=== PATIENT | male | born 1960 | race Caucasian/White ===

== ENCOUNTER 2016-03-15 09:00 | Observation (INO) | payer OTHER ==
[~2016-03-15] VITALS: Ht 185.4 cm; Wt 105.8 kg
[2016-03-15] MEDS ORDERED: BYSTOLIC5 MG PO (09:27)
[2016-03-15 10:01] LABS: HEMATOCRIT 43.4 % (38.0-50.0); MCH 30.9 PG (29.0-34.0); MCHC 35.7 G/DL (30.0-36.0); MCV 86.5 FL (86-99); MEAN PLAT.VOLUME 10.5 uM^3 (9.0-12.4); PLATELET COUNT 198 K/uL (156-360); RBC DIS.WIDTH-CV 12.8 % (11.8-14.6); RBC DIS.WIDTH-SD 39.6 % (39-53); RED BLOOD COUNT 5.02 M/uL (4.00-5.50); WHITE BLOOD COUNT 5.4 K/uL (4.1-10.2)
[2016-03-15 10:12] LABS: CHLORIDE 106 mEq/L (99-109); D-DIMER ELISA < 0.15 mg/L FEU (< 0.57); POTASSIUM 4.2 mEq/L (3.7-5.4); SODIUM 139 mEq/L (136-147)
[2016-03-15 10:15] LABS: GLUCOSE 95 mg/dL (70-99)
[2016-03-15 10:16] LABS: ANION GAP 10 MEQ/L (2-14)
[2016-03-15 10:17] LABS: TOTAL BILIRUBIN 0.9 mg/dL (0.0-1.0)
[2016-03-15 10:18] LABS: ALKALINE PHOSPHATASE 44 IU/L (3-129); GFR ESTIMATE (CALCULATED) > 59 mL/min/
[2016-03-15 10:20] LABS: DIRECT BILIRUBIN 0.3 mg/dL (0.0-0.3); UREA NITROGEN (BUN) 18 mg/dL (9-23)
[2016-03-15 10:22] LABS: LIPASE 22 U/L (1.0-51.0); TROP-I INTERPRETATION NEGATIVE; TROPONIN-I < 0.01 ng/mL (0.0-0.30)
[2016-03-15] MEDS ORDERED: CENTRUM MEN'S1 EACH PO (11:42)
[2016-03-15] MEDS ORDERED: GLUCOSAMINE &1 EAC1 PO (11:43)
[2016-03-15] MEDS ORDERED: FLONASE16 G1 BOTH NARES (11:43)
[2016-03-15 12:50] LABS: HDL CHOLESTEROL 38 MG/DL (Desirable>=40); LDL CHOLESTEROL 112 mg/dL (Desirable<100); NON-HDL CHOLESTEROL 147 mg/dL (Desirable<160); TOTAL CHOLESTEROL 185 mg/dL (Desirable<200); TRIGLYCERIDES 173 MG/DL (Normal: <150)
[2016-03-15 13:55] VITALS: BP 159/96
[2016-03-15 16:00] VITALS: BP 141/89
[2016-03-15 19:12] LABS: TROP-I INTERPRETATION NEGATIVE; TROPONIN-I < 0.01 ng/mL (0.0-0.30)
[2016-03-15 19:22] LABS: Estimated Average Glucose 108 mg/dL (70-123); HEMOGLOBIN A1c (GLYCOHEMOGLOB) 5.4 % HGB (Below 5.7)
[2016-03-15 20:00] VITALS: BP 118/77
[2016-03-16 00:13] VITALS: BP 136/89
[2016-03-16 04:51] VITALS: BP 127/90
[2016-03-16 08:04] VITALS: BP 137/94
[2016-03-16] MEDS ORDERED: NITROSTAT0.4 MG SL (09:16)
[2016-03-16 09:18] LABS: TROP-I INTERPRETATION NEGATIVE; TROPONIN-I < 0.01 ng/mL (0.0-0.30)
== END 2016-03-16 09:53 | disposition home or self-care (01) ==
LOC: EME 09:00 → 5WEST 11:46 → EDOF 11:46 → 5WEST 13:49
PROVIDERS: Emergency Medicine; Internal Medicine; Nurse Practitioner Adult Health
DX: R07.89 Other chest pain (principal); M54.9 Dorsalgia, unspecified; M25.512 Pain in left shoulder; I10 Essential (primary) hypertension; F10.10 Alcohol abuse, uncomplicated; Z82.49 Family history of ischemic heart disease and other diseases of the circulatory system
CPT/HCPCS: 71020; 80048; 80061; 80076; 83036; 83690; 84484; 85027; 85379; 93005; 99281; 99285; G0378; J1650